=== PATIENT | female | born 1965 | race Caucasian/White ===

== ENCOUNTER 2023-05-18 08:18 | Outpatient (CLI) | payer BC | END 2023-05-18 08:19 | disposition home or self-care (01) | LOC: BICMAMMO 08:18 | PROVIDERS: ATTEND Nurse Practitioner Family | DX: Z12.31 Encounter for screening mammogram for malignant neoplasm of breast (principal) | CPT/HCPCS: 77063; 77067 ==

== ENCOUNTER 2024-09-02 08:41 | Outpatient (CLI) | payer BC | END 2024-09-02 08:42 | disposition home or self-care (01) | LOC: BICRAD 08:41 | PROVIDERS: ATTEND Internal Medicine | DX: M25.552 Pain in left hip (principal) ==

== ENCOUNTER 2025-07-06 13:00 | Outpatient (CLI) | payer BC | END 2025-07-06 13:01 | disposition home or self-care (01) | LOC: BICRAD 13:00 | PROVIDERS: ATTEND Podiatrist | DX: M25.672 Stiffness of left ankle, not elsewhere classified (principal); M19.072 Primary osteoarthritis, left ankle and foot; M77.52 Other enthesopathy of left foot and ankle ==